=== PATIENT | female | born 1980 | race Caucasian/White ===

== ENCOUNTER 2018-10-27 03:00 | Inpatient (IN) ==
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
[2018-10-27] MEDS ORDERED: *HR* LORazepam 0.5 MG TABLET PO ONE (04:36)
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
[2018-10-27] MEDS ORDERED: hydrOXYzine pamoate 25 MG CAPSULE PO PRN (06:12)
[2018-10-27] MEDS ORDERED: Haloperidol Lactate 5 MG/ML VIAL IM PRN (06:12)
[2018-10-27] MEDS ORDERED: Acetaminophen 325 MG TABLET PO PRN (06:12)
[2018-10-27] MEDS ORDERED: Mag Hydrox/Al Hydrox/Simeth 30 ML UDC PO PRN (06:12)
[2018-10-27] MEDS ORDERED: traZODone 50 MG TABLET PO PRN ×2 (06:12→09:48)
[2018-10-27] MEDS ORDERED: *HR* LORazepam 1 MG TABLET PO PRN (06:12)
[2018-10-27] MEDS ORDERED: MOM Conc 10 ML UD.LIQ PO PRN (06:12)
[2018-10-27] MEDS ORDERED: *HR* LORazepam 2 MG/ML VIAL IM PRN (06:12)
[2018-10-27] MEDS ORDERED: traZODone 50 MG TABLET PO ONE (09:30)
[2018-10-27] MEDS: FLUoxetine 20 MG CAPSULE PO SCH (10:10)
[2018-10-27] MEDS: clonazePAM 1 MG TABLET PO PRN (10:10)
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
[2018-10-27] MEDS: Gabapentin 300 MG CAPSULE PO SCH ×2 (16:12→20:40)
[2018-10-28] MEDS: Gabapentin 300 MG CAPSULE PO SCH (08:53)
[2018-10-28] MEDS: FLUoxetine 20 MG CAPSULE PO SCH (08:53)
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
[2018-10-28] MEDS ORDERED: FLUoxetine 20 MG CAPSULE PO SCH (09:00)
[2018-10-28 09:06] VITALS: BP 117/80
[2018-10-28] MEDS: clonazePAM 1 MG TABLET PO PRN (09:14)
== END 2018-10-28 10:00 | disposition home or self-care (01) | DRG 885 ==
LOC: EMEROOARM 03:00 → 1ANU 05:11
PROVIDERS: ADMIT Psychiatry & Neurology Psychiatry; ATTEND Psychiatry & Neurology Psychiatry